=== PATIENT | female | born 1990 | race Asian ===

== ENCOUNTER → 2017-04-21 | Outpatient (CLI) | payer OTHER | LOC: FIMAGING 15:15 | PROVIDERS: ATTEND Obstetrics & Gynecology | DX: Z33.1 Pregnant state, incidental (principal); O20.8 Other hemorrhage in early pregnancy ==

== ENCOUNTER → 2017-04-25 | Outpatient (CLI) | payer OTHER | LOC: FIMAGING 16:03 | PROVIDERS: ATTEND Obstetrics & Gynecology | DX: R79.89 Other specified abnormal findings of blood chemistry (principal); Z32.02 Encounter for pregnancy test, result negative ==

== ENCOUNTER 2017-04-29 12:50 | Observation (INO) | payer OTHER ==
[2017-04-29] MEDS ORDERED: METHOTREXATE 25 MG/ML SYRINGE IM ONE (13:15)
== END 2017-04-29 14:00 | disposition home or self-care (01) ==
LOC: FLD 13:46 → EDSTATUS 13:52
PROVIDERS: ADMIT Obstetrics & Gynecology; ATTEND Obstetrics & Gynecology
PROC: 3E023GC Introduction of Other Therapeutic Substance into Muscle, Percutaneous Approach (ICD-10-PCS; principal; 2017-04-29)
DX: O00.90 Unspecified ectopic pregnancy without intrauterine pregnancy (principal)
CPT/HCPCS: J9250